=== PATIENT | female | born 1950 | race African-American/Black ===

== ENCOUNTER → 2019-02-09 | Outpatient (CLI) | payer MEDICARE | END | disposition home or self-care (01) | LOC: PCVCCLINIC 14:00 | PROVIDERS: ATTEND Internal Medicine | DX: I10 Essential (primary) hypertension (principal); E78.5 Hyperlipidemia, unspecified; R06.02 Shortness of breath; I44.7 Left bundle-branch block, unspecified | CPT/HCPCS: 36415; 80061; 93005; G0463 ==

== ENCOUNTER → 2019-02-23 | Outpatient (CLI) | payer MEDICARE ==
[~2019-02-23] MED LIST: REGADENOSON 0.4 MG/5 ML DISP.SYRIN. IV ONE
--- NOTE | 2019-02-23 10:01 | PCVCIMAG ---
APPROVED REPORT Study performed: 02/23/2019 09:11:06 EXAM: Comprehensive 2D, Doppler, and color-flow Echocardiogram Patient Location: Echo lab Status: routine BSA: 2.07 HR: 85 bpmBP: 122/84 mmHg Rhythm: LBBB Other Information Study Quality: Good Risk Factors: Cardiac Risk Factors: HTN, Hyperlipidemia Indications Dyspnea Hypertension/HDD 2D Dimensions IVSd: 14.26 (7-11mm)LVOT Diam: 22.44 (18-24mm) LVDd: 55.72 mm PWd: 10.60 (7-11mm)Ascending Ao: 31.96 (22-36mm) LVDs: 50.07 (25-40mm) Left Atrium: 32.53 (27-40mm) Aortic Root: 27.94 mm LV Single Plane 4CH: 26.25 % Volumes Left Atrial Volume (Systole) Single Plane 4CH: 66.37 mLSingle Plane 2CH: 51.38 mL LA ESV Index: 30.00 mL/m2 Aortic Valve AoV Peak Mario.: 1.61 m/s AO Peak Gr.: 10.40 mmHgLVOT Max P.06 mmHg LVOT Max V: 0.87 m/s CARMINE Vmax: 2.14 cm2 Mitral Valve E/A Ratio: 1.0 MV E Max Mario.: 1.45 m/s MV A Mario.: 1.47 m/s TDI E/Lateral E': 2.07E/Medial E': 14.50 Medial E' Mario.: 0.10 m/s Lateral E' Mario.: 0.70 m/s Pulmonary Valve PV Peak Gr.: 2.73 mmHg Pulmonary Vein P Vein S: 0.55 m/sP Vein A: 0.33 m/s P Vein D: 0.36 m/sP Vein A Dur.: 93.4 msec P Vein S/D Ratio: 1.53 Tricuspid Valve TR Peak Mario.: 2.33 m/s TR Peak Gr.: 21.79 mmHg Left Ventricle The left ventricle is normal size. Mild concentric left ventricular hypertrophy. Left ventricular systolic function is severely decreased. LVEF is 25-30%. Prominent discordant septal motion, probably from a left bundle branch block The diastolic function is abnormal. Right Ventricle The right ventricle is normal size. The right ventricular systolic function is normal. Atria The left atrium size is normal. The right atrium size is normal. Aortic Valve The aortic valve is normal in structure. No aortic regurgitation is present. There is no aortic valvular stenosis. Mitral Valve The mitral valve leaflets are mildly thickened. Moderate mitral regurgitation. No evidence of mitral valve stenosis. Tricuspid Valve The tricuspid valve is normal in structure. Trace tricuspid regurgitation. Pulmonary artery pressure is 30mmHg. Pulmonic Valve The pulmonary valve is normal in structure. There is no pulmonic valvular regurgitation. Great Vessels The aortic root is normal in size. IVC is normal in size and collapses >50% with inspiration. Pericardium There is no pericardial effusion. <Conclusion> Left ventricular systolic function is severely decreased. LVEF is 25-30%. Prominent discordant septal motion, probably from a left bundle branch block The aortic valve is normal in structure. No aortic regurgitation or stenosis The mitral valve leaflets are mildly thickened. Moderate mitral regurgitation. Trace tricuspid regurgitation. Pulmonary artery pressure of 30mmHg. There is no pericardial effusion.
--- NOTE | 2019-02-23 16:51 | PCVCIMAG ---
APPROVED REPORT Imaging Protocol: Rest Tc-99m/Stress Tc-99m 1 day Study performed: 02/23/2019 11:04:48 Indication: Dyspnea, LBBB Patient Location: Out-Patient Stress Nurse: Patrizia Rao RN, Farzana Castro RN SC Tech:Estelita Cayla [facility] Ht: 5 ft 8 in Wt: 205 lbs BSA: 2.07 m2 HR: 81 bpm BP: 181/81 mmHg BMI: 31.1 Rhythm: Normal Sinus Rhythm, LBBB Medical History Medical History: Hyperlipidemia, HTN Medications: Lisinopril, Metoprolol, Zanaflex, Atorvastatin, Torsemide Allergies: No known drug allergies Cardiac Risk Factors: Age Pretest Chest Pain Characteristics: No chest pain Exercise History: Physically active Resting Data Rest SPECT myocardial perfusion imaging was performed in supine position 45 minutes following the intravenous injection of 10.4 mCi of Tc-99m Sestamibi. Time of rest injection: 1015 Administration Route: IV Administration Site: Left Hand Pharmacologic Stress Pharmacologic stress test was performed by injecting Regadenoson 0.4 mg IV push over 10-15 seconds immediately followed by the intravenous injection of 33.5 mCi of Tc-99m Sestamibi. Time of stress injection: 1130 Administration Route: IV Administration Site: Left Hand Gated Stress SPECT was performed 45 minutes after stress injection. The images were gated to evaluate regional wall motion and calculate left ventricular ejection fraction. Stress Test Details Stress Test: Pharmacologic stress testing performed using 0.4 mg of regadenoson per 5 mL given IV over 10 seconds. Reason for pharmacologic stress test: LBBB. HRMax Heart Rate (APMHR): 152 bpm Resting HR: 81 bpmTarget HR (85% APMHR): 129 bpm Max HR Achieved: 126 bpm % of APMHR: 82 Recovery HR: 103 bpm BP Resting BP: 181/81 mmHg Max BP: 145/86 mmHg Recovery BP: 130/77 mmHg ECG Resting ECG: Normal Sinus Rhythm, LBBB Stress ECG: Sinus Tachycardia, LBBB ST Change: Nondiagnostic V-pacing or LBBB Arrhythmia: None Recovery ECG: Sinus Tachycardia, LBBB Recovery ST Change: Nondiagnostic V-pacing or LBBB Recovery Arrhythmia: None Clinical Reason for Termination: Completed protocol Stress Symptoms: Abdominal discomfort, Dyspnea Symptoms resolved during recovery. Stress ECG Conclusion Clinical: Non-ischemic Non-diagnostic electrocardiogram due to underlying left bundle branch block Study Quality Study: Good Study Data Post stress, the left ventricular ejection was 42%.. SSS: 9 SRS: 5 SDS: 4 TID = 0.89. Perfusion No evidence of stress induced ischemia or prior myocardial infarction. There is a medium area of mildly reduced uptake in the mid and apical segment of the anteroseptal wall which is seen on the stress images as well as the resting images. Wall Motion Mildly decreased left ventricular systolic function. Paradoxical septal motion due to left bundle branch block. Nuclear Conclusion No evidence of stress induced ischemia or prior myocardial infarction. Post stress, the left ventricular ejection was 42%. No prior study available for comparison. Interpreted by: Michael Pacheco MD Electronically Approved: 02/23/2019 16:47:49 <Conclusion> Clinical: Non-ischemic Non-diagnostic electrocardiogram due to underlying left bundle branch block
== END | disposition home or self-care (01) ==
LOC: PCVCIMAG 09:03
PROVIDERS: ATTEND Internal Medicine
DX: I34.0 Nonrheumatic mitral (valve) insufficiency (principal); I11.9 Hypertensive heart disease without heart failure; E78.5 Hyperlipidemia, unspecified; I44.7 Left bundle-branch block, unspecified; Z90.49 Acquired absence of other specified parts of digestive tract
CPT/HCPCS: 78452; 93017; 93306; A9500; J2785

== ENCOUNTER → 2019-03-01 | Outpatient (CLI) | payer MEDICARE | END | disposition home or self-care (01) | LOC: PCVCCLINIC 15:00 | PROVIDERS: ATTEND Internal Medicine | DX: I42.0 Dilated cardiomyopathy (principal); R06.02 Shortness of breath; I10 Essential (primary) hypertension; E78.5 Hyperlipidemia, unspecified; I44.7 Left bundle-branch block, unspecified | CPT/HCPCS: G0463 ==

== ENCOUNTER → 2019-04-04 | Outpatient (CLI) | payer MEDICARE | END | disposition home or self-care (01) | LOC: PCVCCLINIC 11:30 | PROVIDERS: ATTEND Internal Medicine | DX: I42.0 Dilated cardiomyopathy (principal); I44.7 Left bundle-branch block, unspecified; I10 Essential (primary) hypertension; R06.02 Shortness of breath; E78.5 Hyperlipidemia, unspecified; Z79.899 Other long term (current) drug therapy | CPT/HCPCS: G0463 ==